=== PATIENT | male | born 1940 | race Caucasian/White ===

== ENCOUNTER 2019-06-07 16:55 | Emergency (ER) | payer OTHER ==
[~2019-06-07] VITALS: Ht 175.3 cm; Wt 92.1 kg
[2019-06-07] MEDS ORDERED: PHENOBARBITAL30 MG PO (17:00)
[2019-06-07] MEDS ORDERED: LASIX 20 MG TAB20 MG PO (17:00)
[2019-06-07 17:28] LABS: ABSOLUTE BASOPHILS 0.1 thou/uL (0.0-0.2); ABSOLUTE EOSINOPHILS 0.6 thou/uL (0.0-0.7); ABSOLUTE LYMPHOCYTES 2.8 thou/uL (0.8-5.3); ABSOLUTE NEUTROPHILS 3.8 thou/uL (1.6-8.1); BASOPHILS 1.1 %; EOSINOPHILS 6.8 %; HEMATOCRIT 42.5 % (42.0-52.0); HEMOGLOBIN 14.7 gm/dL (14.0-18.0); LYMPHOCYTES 33.3 %; MCH 30.7 pg (26.0-34.0); MCHC 34.6 g/dL (28.0-37.0); MCV 88.8 fL (80.0-100.0); MONOCYTES 12.3 %; MPV 9.6 fl. (7.2-11.1); NUCLEATED RBCS 0 /100WBC; PLATELET COUNT* 230 thou/uL (150-400); POLYS 46.5 %; RBC 4.79 mil/uL (4.50-6.00); RDW-CV 14.2 % (10.5-14.5); WBC 8.3 thou/uL (4.0-11.0)
[2019-06-07 17:36] LABS: ANION GAP 11 mmol/L (7-16); APTT 30.8 Seconds (25.0-31.3); BUN 16 mg/dL (7-18); CALCIUM 8.8 mg/dL (8.5-10.1); CHLORIDE 104 mmol/L (98-107); CO2 26 mmol/L (21-32); GLUCOSE 90 mg/dL (70-99); POTASSIUM 4.2 mmol/L (3.5-5.1); PROTIME 10.7 Seconds (9.20-11.50); SODIUM 141 mmol/L (136-145)
[2019-06-07 17:49] LABS: ALBUMIN 3.6 g/dL (3.4-5.0); ALKALINE PHOSPHATASE 73 U/L (46-116); CK-MB MASS 1.2 ng/mL (<0.5-3.6); NT-PRO BRAIN NAT PEPTIDE 159 pg/mL (<300); SGOT 14 U/L (15-37); SGPT 34 U/L (30-65); TOTAL BILIRUBIN 0.2 mg/dL (<0.1-1.0); TOTAL PROTEIN 7.4 g/dL (6.4-8.2); TROPONIN-I LEVEL <0.06 ng/mL (<0.06)
[2019-06-07 18:43] VITALS: BP 146/57
--- NOTE | 2019-06-08 10:13 | EKG ---
[place] [address] ELECTROCARDIOGRAM REPORT Name: JESSICA MEIER [id number] Admission: 06/07/19 Attend Phys: Discharge: 06/07/19 Date of : 40 Report #: [id number] THIS REPORT FOR: //name// [facility] ED Test Date: 2019-06-07 Test Time: 17:18:04 Pat Name: JESSICA MEIER Department: Room: Gender: M [employer]: : 1940 Requested By: Albino Zepeda Order Number: [id number] MD: Zach Silveira Measurements Intervals [place] Rate: 69 P: -11 GA: 135 QRS: -7 QRSD: 94 T: 14 QT: 407 QTc: 436 Interpretive Statements Sinus rhythm Supraventricular bigeminy Low voltage, precordial leads Abnormal R-wave progression, early transition No previous ECG available for comparison Electronically Signed On 06-08-2019 10:13:08 CDT by Zach Silveira [email or web address] <ELECTRONICALLY SIGNED> By: Zach Silveira MD, [facility] 06/08/19 1013 1718 1718 Zach Silveira MD, FAC /EPI
== END 2019-06-07 18:47 | disposition home or self-care (01) ==
LOC: M.ERS 16:55
PROVIDERS: Family Medicine
DX: R51 Headache (principal)

== ENCOUNTER 2019-11-05 13:59 | Inpatient (IN) | payer OTHER ==
[~2019-11-05] VITALS: Ht 167.6 cm; Wt 90.7 kg
[~2019-11-05 13:59] MED LIST: LASIX 20 MG TAB20 MG PO; PHENOBARBITAL30 MG PO
[2019-11-05 14:10] VITALS: BP 170/96
[2019-11-05] MEDS ORDERED: FLOMAX0.4 MG PO (14:15)
[2019-11-05 15:06] LABS: INFLUENZA A ANTIGEN Positive (Negative); INFLUENZA B ANTIGEN Negative (Negative)
[2019-11-05 15:19] LABS: URINE BILIRUBIN NEGATIVE (Negative); URINE BLOOD TRACE (Negative); URINE CLARITY CLEAR; URINE COLOR STRAW; URINE GLUCOSE-RANDOM NEGATIVE (Negative); URINE KETONES NEGATIVE (Negative); URINE LEUKOCYTES-REFLEX NEGATIVE (Negative); URINE NITRITE-REFLEX NEGATIVE (Negative); URINE PROTEIN NEGATIVE (Negative); URINE SPECIFIC GRAVITY <= 1.005 (1.005-1.030); URINE UROBILINOGEN 0.2 E.U./dl (0.2-1.0)
[2019-11-05 15:34] LABS: HEMATOCRIT 42.2 % (42.0-52.0); HEMOGLOBIN 14.6 gm/dL (14.0-18.0); MCH 30.3 pg (26.0-34.0); MCHC 34.5 g/dL (28.0-37.0); MCV 87.7 fL (80.0-100.0); MPV 9.1 fl. (7.2-11.1); NUCLEATED RBCS 0 /100WBC; PLATELET COUNT* 174 thou/uL (150-400); RBC 4.82 mil/uL (4.50-6.00); WBC 5.9 thou/uL (4.0-11.0)
[2019-11-05 15:46] LABS: CALCIUM 8.4 mg/dL (8.5-10.1); CREATININE 0.9 mg/dL (0.6-1.3); POTASSIUM 4.3 mmol/L (3.5-5.1)
[2019-11-05 16:00] LABS: ALBUMIN 3.7 g/dL (3.4-5.0); TOTAL BILIRUBIN 0.6 mg/dL (<0.1-1.0)
[2019-11-05 16:29] LABS: ABSOLUTE BASOPHILS 0.1 thou/uL (0.0-0.2); ABSOLUTE EOSINOPHILS 0.1 thou/uL (0.0-0.7); ABSOLUTE LYMPHOCYTES 1.6 thou/uL (0.8-5.3); ABSOLUTE MONOCYTES 1.1 thou/uL (0.0-1.2); ATYPICAL LYMPHS 2 %; PLATELET ESTIMATE ADEQUATE
[2019-11-05 17:39] VITALS: BP 137/77
[2019-11-05 19:55] VITALS: BP 150/83
[2019-11-05 23:54] VITALS: BP 136/67
[2019-11-06 04:56] VITALS: BP 120/67; BP 144/73
[2019-11-06 08:00] VITALS: BP 136/59
[2019-11-06 12:00] VITALS: BP 165/75
[2019-11-06 20:00] VITALS: BP 152/70
[2019-11-07 07:55] VITALS: BP 153/64
[2019-11-07 11:25] VITALS: BP 153/64
[2019-11-07] MEDS ORDERED: TAMIFLU75 MG PO (12:38)
[2019-11-07 12:41] VITALS: BP 153/64
[2019-11-07 14:54] VITALS: BP 153/64
== END 2019-11-07 14:50 | disposition home health service (06) | DRG 195 ==
LOC: M.ERS 13:59 → M.TBA-ER 16:06 → M.2W 16:06 → M.3W 16:06 → M.2W 17:45 → M.3W 11-06 20:05
PROVIDERS: Personal Emergency Response Attendant; ADMIT Internal Medicine
DX: J10.08 Influenza due to other identified influenza virus with other specified pneumonia (principal); J12.9 Viral pneumonia, unspecified; N40.0 Benign prostatic hyperplasia without lower urinary tract symptoms; G47.00 Insomnia, unspecified; I10 Essential (primary) hypertension; J98.01 Acute bronchospasm; R53.81 Other malaise; G40.909 Epilepsy, unspecified, not intractable, without status epilepticus; F03.90 Unspecified dementia, unspecified severity, without behavioral disturbance, psychotic disturbance, mood disturbance, and anxiety; Z79.899 Other long term (current) drug therapy